=== PATIENT | male | born 1970 | race Caucasian/White ===

== ENCOUNTER 2017-02-06 04:13 | Observation (INO) ==
--- NOTE | 2017-02-06 04:38 | PROVIDER DOCUMENTATION ---
HPI-Chest Pain - General Chief Complaint: Chest Pain Stated Complaint: CHEST PAIN Time Seen by Provider: 02/06/17 04:36 Source: patient (Patient is a 46 year old white male with history of HTN, hyperlipidemia, and depression who presents with left sided chest and shoulder burning and tightness since 325am today that is now gone. Denies history of heart disease, diaphoresis. Reports that his father had SD in is 50's. Denies fever, chills, productive cough, or shortness of breath. Patient took 1 baby aspirin last night.) Allergies/Adverse Reactions: Patient Allergies Allergy/AdvReac Type Severity Reaction Status Date / Time Penicillins Allergy RASH Verified 02/06/17 04:26 Home Medications: Home Medication List Medication Instructions Recorded Confirmed Last Taken Type ATORVAstatin [Lipitor] 2 tab PO HS 02/06/17 02/06/17 Unknown History Amlodipine Besylate 1 tab PO DAILY 02/06/17 02/06/17 Unknown History Escitalopram [Lexapro] 1 tab PO DAILY 02/06/17 02/06/17 Unknown History Lisinopril/Hydrochlorothiazide 1 tab PO DAILY 02/06/17 02/06/17 Unknown History [Lisinopril-Hctz 20-25 mg Tab] - History of Present Illness-CP Chest Pain Radiation: reports: shoulders Quality of Pain: reports: burning, tightness Onset/Duration: abrupt Timing: gone now Modifying Factors: improves with: nothing Associated Symptoms: denies: diaphoresis, dizziness Nitro Today/Relief: no nitro taken today Aspirin Treatment Today: no aspirin today Prior Chest Pain/Cardiac Workup: reports: no prior chest pain Similar Symptoms Previously?: No Recently Seen Here or By Another Healthcare Provider: No Review of Systems - Adult - REVIEW OF SYSTEMS - ADULT Constitutional: denies: chills, fever Eyes: reports: no symptoms reported Ears, Nose, Mouth & Throat: reports: no symptoms reported Cardiovascular: reports: see HPI, chest pain Respiratory: denies: shortness of breath Gastrointestinal: reports: no symptoms reported. denies: nausea, vomiting Genitourinary: reports: no symptoms reported Musculoskeletal: reports: no symptoms reported Integumentary: reports: no symptoms reported Neurological: reports: no symptoms reported Psychiatric: reports: no symptoms reported Endocrine: reports: no symptoms reported Hematologic/Lymphatic: reports: no symptoms reported Allergic/Immunologic: reports: no symptoms reported All Other Systems: Reviewed and Negative Past History - Adult - PAST MEDICAL HISTORY-ADULT Review of Records: reports: Old Records Reviewed, Nursing Assessment Review, Medications Reviewed Major Childhood Illnesses: reports: denies history Cardiovascular: reports: other (enlarged heart) Respiratory: reports: denies history Gastrointestinal: reports: denies history Physical Exam-General - CONSTITUTIONAL General Appearance: appears well, alert, no apparent distress, other ( nondiaphoretic) - EYES Eyes: other (clear) - HEAD, EARS, NOSE, MOUTH & THROAT HENMT: normocephalic/atraumatic - NECK Neck: non-tender, supple - RESPIRATORY Respiratory: lungs clear - CARDIOVASCULAR Cardiovascular: bradycardia - GASTROINTESTINAL (ABDOMEN) Abdominal Exam: normal bowel sounds, non tender - LYMPHATIC Lymphatic: no adenopathy - MUSCULOSKELETAL Back Exam: normal inspection, no CVA tenderness Extremity: normal range of motion, non-tender - SKIN Integumentary: normal color - NEUROLOGIC Neurologic: grossly normal - PSYCHIATRIC Psych/Mental Status: anxious Progress - PLAN OF CARE/RESULTS Progress/Plan/Lab Results: Vital Signs - 8 hr 02/06/17 04:17 02/06/17 04:28 Temperature 97.7 F Pulse Rate 60 54 L Respiratory Rate 20 22 Blood Pressure 143/80 143/80 O2 Sat by Pulse Oximetry 99 100 Laboratory Results - last 24 hr 02/06/17 02/06/17 02/06/17 04:20 04:20 04:20 WBC 7.75 RBC 5.20 Hgb 15.2 Hct 46.3 MCV 89.0 MCH 29.2 MCHC 32.8 L RDW Std Deviation 14.9 H Plt Count 298 MPV 9.9 Immature Gran % (Auto) 0.1 Neut % (Auto) 43.8 Lymph % (Auto) 41.5 [place] % (Auto) 11.7 H Eos % (Auto) 2.5 Baso % (Auto) 0.4 Immature Gran # (Auto) 0.01 Neut # (Auto) 3.39 Lymph # (Auto) 3.22 [place] # (Auto) 0.91 H Eos # (Auto) 0.19 Baso # (Auto) 0.03 PT INR APTT (Factor Assay) Sodium 138 Potassium 3.8 Chloride 101 Carbon Dioxide 25 Anion Gap 12 BUN 16 Creatinine 0.8 Estimated GFR/1.73 m2 > 60 BUN/Creatinine Ratio 20 Glucose 110 H Calculated Osmolality 278 Calcium 9.7 Magnesium 2.2 Total Bilirubin 0.50 AST 21 ALT 28 Alkaline Phosphatase 90 Creatine Kinase 202 Troponin T < 0.010 Total Protein 7.8 Albumin 4.5 Globulin 3.0 Albumin/Globulin Ratio 1.0 02/06/17 04:20 WBC RBC Hgb Hct MCV MCH MCHC RDW Std Deviation Plt Count MPV Immature Gran % (Auto) Neut % (Auto) Lymph % (Auto) [place] % (Auto) Eos % (Auto) Baso % (Auto) Immature Gran # (Auto) Neut # (Auto) Lymph # (Auto) [place] # (Auto) Eos # (Auto) Baso # (Auto) PT 11.6 L INR 0.82 L APTT (Factor Assay) 31.5 Sodium Potassium Chloride Carbon Dioxide Anion Gap BUN Creatinine Estimated GFR/1.73 m2 BUN/Creatinine Ratio Glucose Calculated Osmolality Calcium Magnesium Total Bilirubin AST ALT Alkaline Phosphatase Creatine Kinase Troponin T Total Protein Albumin Globulin Albumin/Globulin Ratio Orders Category Date Time Status Cardiac Monitoring DIRECTED Care 02/06/17 04:46 Active Oxygen Therapy- ED Nursing DIRECTED Care 02/06/17 04:46 Active Saline Loc NOW Care 02/06/17 04:46 Active CHEST-2 VIEWS [RAD] Stat Exams 02/06/17 04:46 Taken CBC WITH ELECTRONIC DIFF [HEME] Stat Lab 02/06/17 04:20 Completed CK PROFILE [SP CHEM] Stat Lab 02/06/17 04:20 Completed COMPREHENSIVE METABOLIC PANEL [CHEM] Stat Lab 02/06/17 04:20 Completed MAGNESIUM [CHEM] Stat Lab 02/06/17 04:20 Completed PRO B-NATRIURETIC PEPTIDE Stat Lab 02/06/17 04:[address] Received [address]IME WITH INR PL [COAG] Stat Lab 02/06/17 04:[address] [COAG] Stat Lab 02/06/17 04:20 Completed TROPONIN T Stat Lab 02/06/17 04:20 Completed Aspirin Med 02/06/17 04:43 Discontinued 243 mg .ROUTE .STK-MED ONE Aspirin Med 02/06/17 04:43 Discontinued 243 mg PO NOW ONE EKG [EKG] Stat Ther 02/06/17 04:46 Draft Result Diagrams: 02/06/17 04:20 02/06/17 04:20 - EKG 1 Time of EKG reading by physician:: 04:23 EKG Read and Signed by:: Manfred Berg Rate: 52 [place]: normal QRS: normal NV Interval: normal Prior EKG Comparison: no prior EKG Comments: no STEMI Departure - Departure Time of Disposition Decision: 05:30 DIAGNOSIS: Chest pain Qualifiers: Chest pain type: unspecified Qualified Code(s): R07.9 - Chest pain, unspecified Disposition: ADMITTED INPATIENT 09 Certified Medical Emergency: Emergent Condition: Stable Referrals and Follow-Ups: Scott Hennessy MD [Primary Care Provider] - - Critical Care Note This patient required my direct personal management.: Yes
[2017-02-06] MEDS ORDERED: ASPIRIN ONE (04:43)
[2017-02-06] MEDS ORDERED: ASPIRIN PO ONE (04:43)
--- NOTE | 2017-02-06 04:49 | EKG Report ---
Test Performed on : 02/06/2017 04:23:21 AM Test Reason : CHEST PAIN Blood Pressure : / mmHG Vent. Rate : 052 BPM Atrial Rate : 052 BPM P-R Int : 154 ms QRS Dur : 094 ms QT Int : 386 ms P-R-T Axes : 063 037 027 degrees QTc Int : 358 ms Sinus bradycardia. Otherwise normal ECG No previous ECGs available Unconfirmed Result
[2017-02-06 04:59] LABS: MANUAL DIFF NEEDED? NO
[2017-02-06 05:03] LABS: BASO% 0.4 % (0.0-0.8); EOS# 0.19 X1000 (0.0-0.7); EOS% 2.5 % (0.0-10.0); HEMATOCRIT 46.3 % (42.0-52.0); HEMOGLOBIN 15.2 g/dL (14.0-18.0); IMM GRAN# 0.01 X1000 (0.0-0.04); IMM GRAN% 0.1 % (0.0-0.5); LYMPH# 3.22 X1000 (1.2-3.4); LYMPH% 41.5 % (20.5-51.1); MCH 29.2 PG (27-31); MCHC 32.8 g/dL (33-37); MONO# 0.91 X1000 (0.11-0.59); MONO% 11.7 % (1.7-9.3); MPV 9.9 FL (7.4-10.4); NEUT% 43.8 % (42.2-75.2); PLT 298 X1000 (130-400)
[2017-02-06 05:17] LABS: INR 0.82 (0.86-1.15); PROTIME 11.6 Seconds (12.1-15.5)
[2017-02-06 05:18] LABS: PTT PL 31.5 Seconds (22.6-43.9)
[2017-02-06 05:25] LABS: AGAP 12; ALBUMIN 4.5 g/dL (3.5-5.0); ALKALINE PHOSPHATASE 90 U/L (32-122); BUN 16 mg/dL (8-22); CALCIUM 9.7 mg/dL (8.8-10.2); CHLORIDE 101 mmol/L (98-107); CK PROFILE 202 U/L (24-204); COSMO 278; GOT 21 U/L (10-34); GPT 28 U/L (10-44); MAGNESIUM 2.2 mg/dL (1.5-2.7); POTASSIUM 3.8 mmol/L (3.5-5.1); SODIUM 138 mmol/L (136-145); TCO2 25 mmol/L (25-35); TOTAL PROTEIN 7.8 g/dL (6.3-8.3)
--- NOTE | 2017-02-06 06:42 | Diag Imaging Result Document ---
PROCEDURE NAME: CHEST-2 VIEWS - 02/06/2017 FRONTAL AND LATERAL CHEST, 2 VIEWS: FINDINGS: The lungs are well expanded. Heart is not enlarged. The vessels are not distended. No pneumonia. No pleural effusions. No free air beneath the diaphragm. IMPRESSION: No acute abnormality.
[2017-02-06 07:15] VITALS: BP 118/75
[2017-02-06 10:23] LABS: HDL 43 mg/dL (35-55); LDL 75 mg/dL; TRIGLYCERIDES 112 mg/dL (39-160); VLDL 22 mg/dL
--- NOTE | 2017-02-06 11:16 | EKG Report ---
Test Performed on : 02/06/2017 09:58:54 AM Test Reason : cp Blood Pressure : / mmHG Vent. Rate : 051 BPM Atrial Rate : 051 BPM P-R Int : 150 ms QRS Dur : 096 ms QT Int : 396 ms P-R-T Axes : 047 038 030 degrees QTc Int : 364 ms Sinus bradycardia. Otherwise normal ECG When compared with ECG of 06-FEB-2017 04:23, (Unconfirmed) No significant change was found Confirmed by Ant Espinal MD ([id number]) on 02/10/2017 4:53:41 AM
[2017-02-06] MEDS ORDERED: LEXISCAN ONE (12:25)
--- NOTE | 2017-02-06 12:40 | GRADED EXERCISE REPORT ---
DATE: 02/06/2017 Patient underwent testing per protocol. Baseline blood pressure 137/85, heart rate of 60. Of note his EKG does show Q-waves in 2, 3 and aVF with some T-wave inversions consistent with possible inferior UT of undetermined age. It is very odd that I did not appreciate that on his initial EKG. He underwent Lexiscan infusion and it was unremarkable. He felt abnormal but no chest pain was induced. There were no significant ST changes from baseline. Test was felt to be clinically negative and electrically negative however it should be noted that he did have T-wave inversions in his inferior leads. He did have some ST depression it does look like in lead 3 but again this had been noted on his baseline EKG so I am not sure how much true change there was there. cc: Fernando Wen MD
--- NOTE | 2017-02-06 13:44 | HISTORY AND PHYSICAL ---
CHIEF COMPLAINT: Chest pain. HISTORY OF PRESENT ILLNESS: This is a 46-year-old gentleman who came in for chest pain, left- sided, starting last night. Pain persisted. It was sharp and burning in intensity, radiating to neck and left shoulder. Started around 3:25 in the a.m. Patient is nearly chest pain free. Other workup is negative. He does report that he had a stress test 12 years ago and again six years ago, which were unremarkable. He has been on an aggressive diet to lose weight and help with his cholesterol. Patient placed on observation for chest pain. PAST MEDICAL HISTORY: 1. Hypertension. 2. Dyslipidemia. Denies diabetes, cardiac issues. PAST SURGICAL HISTORY: Denies. FAMILY HISTORY: Reviewed. Father had MS in his 50s, and he of a massive MS in his 60s. ALLERGIES: Penicillin. MEDICATIONS: He is on amlodipine 10 daily, Lipitor 80 daily, Lexapro 10 daily, lisinopril/hydrochlorothiazide 20/25 daily. REVIEW OF SYSTEMS: Otherwise negative. PHYSICAL EXAMINATION: VITAL SIGNS: Blood pressure 118/75, heart rate of 50, respiratory rate of 20, temperature 98.5. GENERAL: Well-developed male in no acute distress. HEENT: Head exam was normocephalic, atraumatic. Eye exam: Pupils equal, round, reactive to light. Extraocular movements are intact. Ears, nose and throat exam: Thin, moist mucous membranes. NECK: Supple. CARDIOVASCULAR: Regular rate and rhythm. No murmurs, gallops, or rubs. PULMONARY: Bilateral breath sounds clear to auscultation. GASTROINTESTINAL: Abdomen soft, nontender, nondistended. Bowel sounds are positive. EXTREMITIES: No clubbing or cyanosis. INTEGUMENT: No peripheral edema. NEUROLOGICAL: Nonfocal. MUSCULOSKELETAL: 4/5 in all four extremities. LABORATORY DATA: Really unremarkable. Normal CBC, coagulations, CMP, troponins. EKG was nonspecific ST changes. ASSESSMENT: [id number]-old white male with history of hypertension, dyslipidemia, presenting with chest pain. PROBLEMS: 1. Chest pain. We will follow that with serial cardiac isoenzymes, monitor on telemetry, treat symptomatically, and pursue Lexiscan noninvasive imaging for risk stratification. Pain is atypical. He does have risk factors of hypertension, obesity, smoking, family history, and dyslipidemia. SUSAN score is at least around a 2. 2. Hypertension. Continue regular medications. 3. Dyslipidemia. Will monitor lipid function and follow closely. DISPOSITION: Pending his other workup. cc: MD Scott West MD
--- NOTE | 2017-02-06 17:07 | Diag Imaging Result Document ---
PROCEDURE NAME: MYOCARDIAL PERF SCAN, STR/REST - 02/06/2017 SUMMARY: The patient was administered 15.3 millicuries of technetium-99m sestamibi after which resting cardiac images were obtained. The patient subsequently administered Lexiscan after which the heart rate went from 60 beats per minute to 90 beats per minute. Blood pressure went from 137/85 to 158/84. With Lexiscan, the patient denied chest discomfort. Following the administration of Lexiscan, the patient was administered 45.8 millicuries of technetium-99m sestamibi after which gated stress cardiac images were obtained. Baseline ECG demonstrated sinus rhythm and inferior Q-waves. With Lexiscan there were no diagnostic ST-segment changes. SPECT images were reconstructed in the short, horizontal, long, and vertical long axis. Review of these images demonstrated diminished activity in the basal to mid inferior wall on stress images which appears similar on resting images. There is also a small region of mildly diminished activity in the apical anteroseptal region left ventricle on stress images which remains unchanged on resting images. No significant reversibility is evident. Gated images demonstrate a calculated left ventricular ejection fraction of 53% with symmetrical wall motion/thickening. CONCLUSIONS: 1. Adequate response to Lexiscan. 2. Clinically negative for chest pain. 3. Electrocardiographically there were no diagnostic ST-segment changes on ECG following administration of Lexiscan. 4. Lexiscan sestamibi images demonstrate fixed diminished activity in the basal to mid inferior wall with corresponding preserved regional wall motion most consistent with soft tissue attenuation artifact. There is also a small fixed area of diminished activity in the apical anteroseptal region with corresponding preserved regional wall motion also more likely soft tissue attenuation. There is no convincing scintigraphic evidence of inducible myocardial ischemia. Normal left ventricular ejection fraction demonstrated. cc: MD Fernando Figueroa MD
[2017-02-06] MEDS ORDERED: LIPITOR PO SCH (21:00)
[2017-02-07] MEDS ORDERED: PRINIVIL PO SCH (09:00)
[2017-02-07] MEDS ORDERED: HYDROCHLOROTHIAZIDE PO SCH (09:00)
[2017-02-07] MEDS ORDERED: NORVASC PO SCH (09:00)
[2017-02-07] MEDS ORDERED: NON-FORMULARY MED (Lisinopril/Hydrochlorothiazide [Lisinopril-Hctz 20-25 Mg Tab] 1 TAB) PO SCH (09:00)
[2017-02-07] MEDS ORDERED: LEXAPRO PO SCH (09:00)
--- NOTE | 2017-03-12 20:28 | DISCHARGE SUMMARY ---
ADMISSION DATE: 02/06/2017 DISCHARGE DATE: 02/06/2017 DISCHARGE DIAGNOSES: 1. Atypical chest pain. 2. Hypertension. 3. Dyslipidemia. HISTORY: Briefly, a 46-year-old gentleman presenting with atypical chest pain. He was admitted and placed on telemetry. He had serial cardiac enzymes which were negative. Myocardial perfusion imaging done the next day or that day showed no significant reversible defects. He had a fixed defect but otherwise okay. The EF was 53% and he was felt stable for discharge. DISCHARGE MEDICATIONS: 1. Amlodipine 10 daily. 2. Lipitor 40 daily. 3. Lexapro 10 daily. 4. Lisinopril hydrochlorothiazide 20/12.5 daily. 5. Omeprazole 40 daily. DISCHARGE INSTRUCTIONS: He is told to follow up with his PCP, evaluation for GI workup as an outpatient if he has persistent chest pain. cc: MD Scott West MD
== END 2017-02-06 20:00 | disposition home or self-care (01) ==
LOC: P.MEDSURG 04:13 → P.ED 04:13 → SUATTDRO 05:45 → P.MEDSURG 05:57
PROVIDERS: ADMIT Internal Medicine; ATTEND Internal Medicine